=== PATIENT | male | born 1990 | race African-American/Black ===

== ENCOUNTER 2017-10-02 16:30 | Emergency (ER) | payer BC, OTHER ==
[~2017-10-02] VITALS: Ht 188 cm; Wt 77.1 kg
[2017-10-02 16:31] VITALS: BP 139/92
[2017-10-02] MEDS ORDERED: MOBIC15 MG PO (16:53)
[2017-10-02] MEDS ORDERED: CIPRO HC OTIC S10 ML OTIC (16:53)
== END 2017-10-02 17:14 | disposition home or self-care (01) ==
LOC: ER 16:30
DX: H60.91 Unspecified otitis externa, right ear (principal)